=== PATIENT | male | born 2000 | race Asian ===

== ENCOUNTER 2019-08-19 04:06 | Emergency (ER) | payer OTHER ==
[~2019-08-19] VITALS: Ht 172.7 cm; Wt 68.0 kg
[2019-08-19 04:14] VITALS: BP_SYST 123
--- NOTE | 2019-08-19 04:14 | NUR ---
Patient to ER bed 6 to gown for evaluation. Side rails up. Report given to MERLY Hutchinson.
--- NOTE | 2019-08-19 04:20 | NUR ---
Patient presents to ED with complaint of right lower mouth pain 5/10 x3 days. Patient states he has been medicating with Motrin 800mg but has been ineffective, last dose was at 2300 last night. Patient reports that he had a cavity to the area in which a root canal was performed in 2014. No other symptoms or complaints.
--- NOTE | 2019-08-19 04:53 | NUR ---
ER MD Guzman at bedside for medical evaluation.
[2019-08-19] MEDS ORDERED: OXYCODONE/ACETAMINOPHEN 5-325 TABLET PO ONE (05:00)
--- NOTE | 2019-08-19 05:45 | NUR ---
No adverse reactions noted after medication administration. Will continue to monitor.
[2019-08-19 06:12] VITALS: BP_SYST 128
--- NOTE | 2019-08-19 06:12 | NUR ---
Patient given written and verbal discharge instructions and verbalizes understanding. ER MD discussed with patient the results and treatment provided. Patient in stable condition. ID arm band removed. Rx of Percocet 5/325 and Ibuprofen given. Patient educated on pain management and to follow up with PMD. Pain Scale 2/10 tolerable to patient. Opportunity for questions provided and answered. Medication side effect fact sheet provided.
== END 2019-08-19 06:12 | disposition home or self-care (01) ==
LOC: SED 04:06
DX: K02.9 Dental caries, unspecified (principal)
CPT/HCPCS: 99283